=== PATIENT | female | born 1935 | race African-American/Black ===

== ENCOUNTER 2018-05-10 09:30 | Emergency (ER) | payer OTHER, MEDICARE ==
[~2018-05-10] VITALS: Ht 152.4 cm; Wt 81.6 kg
[~2018-05-10 09:30] MED LIST: ASPI-612 PO; BENA40TA3 PO; CLON0.2T PO; CYCL10TA2 PO; FURO20TA3 PO; INSU100I17 SQ; INSU100I27 SQ; METF10007 PO; SIMV40TA3 PO; TRAM50TA PO
--- NOTE | 2018-05-10 10:33 | PHYS DOC ---
Past Medical History Past Medical History: Diabetes-Type II, Hypertension Past Surgical History: Other Additional Past Surgical Histo: LEFT ANKLE " TO REMOVE A MASS" Alcohol Use: None Drug Use: None Adult General Chief Complaint Chief Complaint: WEAKNESS/GENERALIZED HPI HPI Patient is a 83 year old female who presents with lightheadedness with standing. She describes it as a "swimming sensation." No headache. No weakness in the arms or legs. No chest pain or palpitations. No ringing in the ears. No trauma. No rectal bleeding. Standing makes it worse, sitting down makes it better. [] Review of Systems Review of Systems Constitutional: Denies fever or chills [] Eyes: Denies change in visual acuity, redness, or eye pain [] HENT: Denies nasal congestion or sore throat [] Respiratory: Denies cough or shortness of breath [] Cardiovascular: No chest pain or palpitations[] GI: Denies abdominal pain, nausea, vomiting, bloody stools or diarrhea [] : Denies dysuria or hematuria [] Musculoskeletal: Denies back pain or joint pain [] Integument: Denies rash or skin lesions [] Neurologic: Denies headache, focal weakness or sensory changes [] Endocrine: Denies polyuria or polydipsia [] All other systems were reviewed and found to be within normal limits, except as documented in this note. Current Medications Current Medications Current Medications Medications (Trade) Dose Ordered Sig/Tanner Start Time Stop Time Status Last Admin Dose Admin Sodium Chloride 500 ml @ 500 mls/hr 1X ONCE 05/10/18 11:00 05/10/18 11:59 DC 05/10/18 11:18 500 MLS/HR Allergies Allergies Allergies Coded Allergies Type Severity Reaction Last Updated Verified No Known Drug Allergies 08/05/15 No Physical Exam Physical Exam Constitutional: Well developed, well nourished, no acute distress, non-toxic appearance. [] HENT: Normocephalic, atraumatic, bilateral external ears normal, TMs are clear, no cerumen impaction, no bulging TM, oropharynx moist, no oral exudates, nose normal. [] Eyes: PERRLA, EOMI, conjunctiva normal, no discharge. [] Neck: Normal range of motion, no tenderness, supple, no stridor. [] Cardiovascular:Heart rate regular rhythm, no murmur [] Lungs & Thorax: Bilateral breath sounds clear to auscultation [] Abdomen: Bowel sounds normal, soft, no tenderness, no masses, no pulsatile masses. [] Skin: Warm, dry, no erythema, no rash. [] Back: No tenderness, no CVA tenderness. [] Extremities: No tenderness, no cyanosis, no clubbing, ROM intact, no edema. [] Neurologic: Alert and oriented X 3, normal motor function, normal sensory function, no focal deficits noted. [] Psychologic: Affect normal, judgement normal, mood normal. [] Current Patient Data Vital Signs Vital Signs Date Time Temp Pulse Resp B/P (MAP) Pulse Ox O2 Delivery O2 Flow Rate FiO2 05/10/18 10:21 98.0 66 18 168/79 (108) 97 Room Air 98.0 Lab Values Laboratory Tests Test 05/10/18 10:29 05/10/18 10:40 05/10/18 12:05 Glucose (Fingerstick) 177 mg/dL (70-99) H White Blood Count 5.3 x10^3/uL (4.0-11.0) Red Blood Count 3.77 x10^6/uL (3.50-5.40) Hemoglobin 10.8 g/dL (12.0-15.5) L Hematocrit 33.1 % (36.0-47.0) L Mean Corpuscular Volume 88 fL (79-100) Mean Corpuscular Hemoglobin 29 pg (25-35) Mean Corpuscular Hemoglobin Concent 33 g/dL (31-37) Red Cell Distribution Width 14.0 % (11.5-14.5) Platelet Count 209 x10^3/uL (140-400) Neutrophils (%) (Auto) 73 % (31-73) Lymphocytes (%) (Auto) 19 % (24-48) L Monocytes (%) (Auto) 6 % (0-9) Eosinophils (%) (Auto) 2 % (0-3) Basophils (%) (Auto) 0 % (0-3) Neutrophils # (Auto) 3.9 x10^3uL (1.8-7.7) Lymphocytes # (Auto) 1.0 x10^3/uL (1.0-4.8) Monocytes # (Auto) 0.3 x10^3/uL (0.0-1.1) Eosinophils # (Auto) 0.1 x10^3/uL (0.0-0.7) Basophils # (Auto) 0.0 x10^3/uL (0.0-0.2) Prothrombin Time 14.2 SEC (11.7-14.0) H Prothrombin Time INR 1.1 (0.8-1.1) Sodium Level 140 mmol/L (136-145) Potassium Level 3.7 mmol/L (3.5-5.1) Chloride Level 104 mmol/L (98-107) Carbon Dioxide Level 25 mmol/L (21-32) Anion Gap 11 (6-14) Blood Urea Nitrogen 29 mg/dL (7-20) H Creatinine 2.6 mg/dL (0.6-1.0) H Estimated GFR (Cockcroft-Gault) 21.3 BUN/Creatinine Ratio 11 (6-20) Glucose Level 200 mg/dL (70-99) H Calcium Level 8.9 mg/dL (8.5-10.1) Magnesium Level 2.1 mg/dL (1.8-2.4) Total Bilirubin 0.4 mg/dL (0.2-1.0) Aspartate Amino Transferase (AST) 14 U/L (15-37) L Alanine Aminotransferase (ALT) 12 U/L (14-59) L Alkaline Phosphatase 86 U/L (46-116) Troponin I Quantitative 0.017 ng/mL (0.000-0.055) YG-Nxc-L-Type Natriuretic Peptide 784 pg/mL (0-449) H Total Protein 6.5 g/dL (6.4-8.2) Albumin 3.0 g/dL (3.4-5.0) L Albumin/Globulin Ratio 0.9 (1.0-1.7) L Urine Collection Type Unknown Urine Color Yellow Urine Clarity Clear Urine pH 5.5 Urine Specific [place] 1.015 Urine Protein 100 mg/dL (NEG-TRACE) Urine Glucose (UA) Negative mg/dL (NEG) Urine Ketones (Stick) Negative mg/dL (NEG) Urine Blood Negative (NEG) Urine Nitrite Negative (NEG) Urine Bilirubin Negative (NEG) Urine Urobilinogen Dipstick 0.2 mg/dL (0.2 mg/dL) Urine Leukocyte Esterase Negative (NEG) Urine RBC 0 /HPF (0-2) Urine WBC 1-4 /HPF (0-4) Urine Squamous Epithelial Cells Many /LPF Urine Bacteria Few /HPF (0-FEW) Laboratory Tests 05/10/18 10:40 Laboratory Tests 05/10/18 10:40 EKG EKG EKG shows a sinus rhythm at 60 bpm, left axis deviation with QRS at -30, QTC of 438 ms, no ST elevations, no acute changes when compared with EKG of 2016.[] Radiology/Procedures Radiology/Procedures PORTABLE CHEST 1V Clinical Indication: weakness and dizzy Comparison: AP chest April 09, 2017. Findings: Atherosclerotic and tortuous thoracic aorta. Cardiac size is normal. Lungs are clear. There is no pneumothorax. No pleural effusion is appreciated. Question calcific tendinosis of the left supraspinatus. No acute bone abnormality. Degenerative endplate spurring of the thoracic spine. IMPRESSION: No acute cardiopulmonary process.[] Course & Med Decision Making Course & Med Decision Making Pertinent Labs and Imaging studies reviewed. (See chart for details) ED course: Patient arrived, was placed in bed, tolerated exam well. Patient had orthostatic vital signs performed which did show a drop in her blood pressure when she stood up and re-create of the symptoms. Patient received IV fluids and was feeling much better after the IV fluids. Discussed lab and imaging findings with the patient who voiced understanding. All questions were answered. Vision making: This appears to be more of a hydration issue than an acute cardiac issue. No evidence of an infectious process either.[] Dragon Disclaimer Dragon Disclaimer This electronic medical record was generated, in whole or in part, using a voice recognition dictation system. Departure Departure Impression: Primary Impression: Dehydration Disposition: 01 HOME, SELF-CARE Condition: IMPROVED Referrals: HILDA CASTANEAD MD (PCP) Follow-up in 2 days Patient Instructions: DASH Diet, Dehydration, Elderly Additional Instructions: Drink plenty of fluids. Follow a good healthy diet. Return to the ER if any concerns. Follow-up with your regular doctor in 2 days. KRISTOFER SALINAS DO May 10, 2018 10:33
[2018-05-10 10:56] LABS: BASO % 0 % (0-3); EOS # 0.1 x10^3/uL (0.0-0.7); EOS % 2 % (0-3); HEMATOCRIT 33.1 % (36.0-47.0); HEMOGLOBIN 10.8 g/dL (12.0-15.5); LYMPH % 19 % (24-48); MEAN CORPUSCULAR HEMOGLOBIN 29 pg (25-35); MEAN CORPUSCULAR HGB CONC 33 g/dL (31-37); MEAN CORPUSCULAR VOLUME 88 fL (79-100); MONO # 0.3 x10^3/uL (0.0-1.1); MONO % 6 % (0-9); NEUT # 3.9 x10^3uL (1.8-7.7); NEUT % 73 % (31-73); PLATELET COUNT 209 x10^3/uL (140-400); RED BLOOD COUNT 3.77 x10^6/uL (3.50-5.40); WHITE BLOOD COUNT 5.3 x10^3/uL (4.0-11.0)
[2018-05-10] MEDS ORDERED: IV NORMAL SALINE 500ML BAG 500 ML IV ONE (11:00)
[2018-05-10 11:04] LABS: PROTHROMBIN TIME PATIENT 14.2 SEC (11.7-14.0)
--- NOTE | 2018-05-10 11:08 | EKG ---
[facility] [address] [place] [id number] Test Date: 2018-05-10 Test Time: 10:35:57 Pat Name: BIANCA GRIFFITH Department: Room: Gender: F Division Superintendent: : [id number] Requested By: KRISTOFER SALINAS Order Number: [id number] Reading MD: Measurements Intervals [place] Rate: 60 P: -1 MS: 162 QRS: -30 QRSD: 88 T: 29 QT: 434 QTc: 438 Interpretive Statements SINUS RHYTHM ABNORMAL LEFT AXIS DEVIATION LEFT ANTERIOR FASCICULAR BLOCK QRS(T) CONTOUR ABNORMALITY CONSISTENT WITH ANTEROSEPTAL INFARCT PROBABLY OLD ABNORMAL ECG No previous ECG available for comparison
[2018-05-10 11:14] LABS: ALBUMIN/GLOBULIN RATIO 0.9 (1.0-1.7); CALCIUM 8.9 mg/dL (8.5-10.1); CREATININE 2.6 mg/dL (0.6-1.0); GFR 21.3; MAGNESIUM 2.1 mg/dL (1.8-2.4); POTASSIUM 3.7 mmol/L (3.5-5.1); TOTAL BILIRUBIN 0.4 mg/dL (0.2-1.0); TOTAL PROTEIN 6.5 g/dL (6.4-8.2)
[2018-05-10] MEDS ORDERED: IV NORMAL SALINE 250ML 500 ML IV ONE (11:15)
--- NOTE | 2018-05-10 11:32 | RAD ---
PORTABLE CHEST 1V Clinical Indication: weakness and dizzy Comparison: AP chest April 09, 2017. Findings: Atherosclerotic and tortuous thoracic aorta. Cardiac size is normal. Lungs are clear. There is no pneumothorax. No pleural effusion is appreciated. Question calcific tendinosis of the left supraspinatus. No acute bone abnormality. Degenerative endplate spurring of the thoracic spine. IMPRESSION: No acute cardiopulmonary process. Electronically signed by: Bry Espana MD (05/10/2018 11:27 AM) [id number]
[2018-05-10 12:17] LABS: BILIRUBIN,URINE NEGATIVE (NEG); CLARITY,URINE CLEAR; COLOR,URINE YELLOW; NITRITE,URINE NEGATIVE (NEG); PH,URINE 5.5; PROTEIN,URINE 100 mg/dL (NEG-TRACE); UROBILINOGEN,URINE 0.2 mg/dL (0.2 mg/dL)
[2018-05-10 12:30] LABS: BACTERIA,URINE FEW /HPF (0-FEW); RBC,URINE 0 /HPF (0-2); SQUAMOUS EPITHELIAL CELL,UR MANY /LPF
[2018-05-10 12:37] VITALS: BP 164/77
== END 2018-05-10 13:06 | disposition home or self-care (01) ==
LOC: ER 09:30
DX: E86.0 Dehydration (principal); E11.9 Type 2 diabetes mellitus without complications; I10 Essential (primary) hypertension
CPT/HCPCS: 36415; 71045; 80053; 81001; 82962; 83735; 83880; 84484; 85025; 85610; 93005; 96360; 99284; J7040